=== PATIENT | male | born 1975 | race Hispanic/Latino ===

== ENCOUNTER 2017-11-30 13:01 | Emergency (ER) | payer OTHER ==
[2017-11-30 14:03] LABS: #Basophils 0.1 thou/uL (0.0-0.2); #Eosinphils 0.1 thou/uL (0.0-0.7); #Lymphocytes 1.3 thou/uL (1.20-3.40); #Monocytes 0.5 thou/uL (0.11-0.59); #Neutrophils 7.1 thou/uL (1.40-6.50); %Basophils 1.1 % (0.0-1.0); %Eosinophils 0.7 % (0.0-10.0); %Lymphocytes 14.4 % (21.0-51.0); %Monocytes 5.7 % (0.0-10.0); %Neutrophils 78.2 % (42.0-75.0); Hemoglobin 10.7 g/dL (14.0-18.0); Mean Corpuscular HGB CONC 31.4 g/dL (32.0-36.0); Mean Corpuscular Hemoglobin 27.1 pg (27.0-31.0); Mean Corpuscular Volume 86.4 fl (80.0-94.0); Mean Platelet Volume 11.6 fL (7.4-10.4); Platelet Count 94 thou/uL (130-400); RBC Distribution Width 23.3 % (11.5-14.5); Red Blood Cell (RBC) Count 3.95 mill/uL (4.70-6.10); White Blood Cell (WBC) Count 9.1 thou/uL (4.8-10.8)
[2017-11-30] MEDS ORDERED: Promethazine HCl 25 MG/ML VIAL ONE (14:14)
[2017-11-30 14:15] LABS: Anisocytosis MODERATE=16-30 cells (100X) (0-5/hpf); MDiff Complete? YES; PLT Morphology Comment Appears Decreased; Polychromasia SLIGHT = 2-3 cells (100X) (0-2/hpf); Target Cells SLIGHT = 2-5 cells (100X) (0-1/hpf)
[2017-11-30 14:17] LABS: ALT (SGPT) 29 U/L (8-55); AST (SGOT) 122 U/L (5-34); Albumin 3.3 g/dL (3.5-5.0); Alkaline Phosphatase 382 U/L (40-150); Anion Gap 25 mmol/L (10-20); BUN (Urea Nitrogen) 10 mg/dL (8.9-20.6); Bilirubin, Total 6.8 mg/dL (0.2-1.2); Calc. Creatinine Clearance 0 mL/min (70-130); Calcium 9.9 mg/dL (7.8-10.44); Carbon Dioxide 13 mmol/L (22-29); Chloride 100 mmol/L (98-107); Estimated GFR-MDRD Greater than 90; Globulin 6.3 g/dL (2.4-3.5); Glucose 210 mg/dL (70-105); Protein, Total 9.6 g/dL (6.0-8.3); Sodium 135 mmol/L (136-145)
--- NOTE | 2017-11-30 15:02 | CT ---
HEAD CT NONCONTRAST: Date: 11/30/17 COMPARISON: 09/25/15. INDICATION: Head trauma with pain related to fall. History of seizure prior to arrival. FINDINGS: There is no intracranial hemorrhage, mass effect, midline shift, or ventriculomegaly. Paranasal sinus es are clear. No pneumocephalus is present. IMPRESSION: No acute intracranial hemorrhage or mass effect. POS: [facility]
[2017-11-30] MEDS ORDERED: Multivitamins, Adult 10 ML, Thiamine HCl 100 MG, Folic Acid 1 MG in Dextrose 5 %-0.45 %... IV SCH ×4 (15:45)
[2017-11-30 18:01] LABS: Lactic Acid 1.8 mmol/L (0.5-2.2)
== END 2017-11-30 20:54 | disposition home or self-care (01) ==
LOC: ERS 13:01
DX: G40.909 Epilepsy, unspecified, not intractable, without status epilepticus (principal); E86.0 Dehydration; E78.5 Hyperlipidemia, unspecified; I10 Essential (primary) hypertension; F43.10 Post-traumatic stress disorder, unspecified; Z79.899 Other long term (current) drug therapy
CPT/HCPCS: 36415; 70450; 80053; 83605; 85025; 93005; 96361; 96365; 96366; J2550; J3411; J7042